=== PATIENT | female | born 1950 | race Caucasian/White ===

== ENCOUNTER → 2017-02-20 | Outpatient (CLI) | payer MEDICARE ==
--- NOTE | 2017-02-20 10:07 | BD ---
EXAMINATION TYPE: MG DEXA axial skeleton. DATE OF EXAM: 02/20/2017 COMPARISON: NONE CLINICAL HISTORY: Height: 62.5 IN Weight: 194 LBS FRAX RISK QUESTIONS: Alcohol (3 or more units per day): NO Family History (Parent hip fracture): NO Glucocorticoids (More than 3mos): NO (Ex: prednisone, prednisolone, methylprednisolone, dexamethasone, and hydrocortisone). History of Fracture in Adulthood: NO Secondary Osteoporosis: 1. Type 1 Diabetes: NO 2. Hyperthyroidism: NO 3. Menopause before 45: NO 4. Malnutrition: NO 5. Chronic liver disease: NO Rheumatoid Arthritis: NO Current Tobacco Use: NO RISK FACTORS HISTORY OF: Active: YES Postmenopausal woman: AGE 49 Lost more than 2 inches in height since high school: YES 3 " MEDICATIONS: Thyroid Medications: YES Which medication: Levothyroxine How Lon + YRS Osteoporosis Medications: NOT NOW Which medication: Boniva How Long: TOOK BONIVA FOR 3 MONTHS 10 YEARS AGO. Additional Medications: CALCIUM, VIT D, STATIN, HIGH BLOOD PRESSURE MEDS, LEVOTHYROXINE EXAM MEASUREMENTS: Bone mineral densitometry was performed using the Player X System. Bone mineral density as measured about the Lumbar spine is: ----- L1-L4(G/cm2): 1.121 T Score Values are as follows: ----- L2: -1.7 ----- L3: -0.3 ----- L4: 0.6 ----- L1-L4: -0.5 Bone mineral density has:Increased 4.4% since study of: 07/14/2014 Bone mineral density about the R hip (g/cm2): 1.011 Bone mineral density about the L hip (g/cm2): 0.961 T Score values are as follows: -----R Neck: -0.2 -----L Neck: -0.6 -----R Total: 0.4 -----L Total: 0.6 Bone mineral density has: Increased 4.1% since study of: 07/14/2014 IMPRESSION: Findings compatible with localized osteopenia L2 vertebral body. NOTE: T-SCORE=SD OF THE YOUNG ADULT MEAN.
--- NOTE | 2017-02-21 11:34 | MM ---
Reason for exam: screening (asymptomatic). Last mammogram was performed 1 year ago. History: Patient is postmenopausal. Family history of breast cancer in maternal aunt at age 60. Took estrogen for 5 years 2 months. Physical Findings: A clinical breast exam by your physician is recommended on an annual basis and results should be correlated with mammographic findings. MG 3D Screening Mammo W/Cad Bilateral CC and MLO view(s) were taken. Prior study comparison: February 18, 2016, bilateral MG 3d screening mammo w/cad. July 14, 2014, bilateral MG screening mammo w CAD. There are scattered fibroglandular densities. Benign calcifications. There is chronic nodularity in the right breast, stable. No significant changes when compared with prior studies. ASSESSMENT: Benign, BI-RAD 2 RECOMMENDATION: Routine screening mammogram of both breasts in 1 year.
== END | disposition home or self-care (01) ==
LOC: RADMAMWWP 08:40
PROVIDERS: ATTEND Family Medicine
DX: Z12.31 Encounter for screening mammogram for malignant neoplasm of breast (principal); N95.1 Menopausal and female climacteric states
CPT/HCPCS: 77080; 77063; G0202

== ENCOUNTER → 2018-03-26 | Outpatient (CLI) | payer MEDICARE ==
--- NOTE | 2018-03-28 09:53 | MM ---
Reason for exam: screening (asymptomatic). Last mammogram was performed 1 year and 1 month ago. History: Patient is postmenopausal. Family history of breast cancer in maternal aunt at age 60. Took estrogen for 5 years 2 months. Physical Findings: A clinical breast exam by your physician is recommended on an annual basis and results should be correlated with mammographic findings. MG 3D Screening Mammo W/Cad Bilateral CC and MLO view(s) were taken. XCCL view(s) were taken of the left breast. Prior study comparison: February 20, 2017, bilateral MG 3d screening mammo w/cad. February 18, 2016, bilateral MG 3d screening mammo w/cad. There are scattered fibroglandular densities. Finding: There are typically benign vascular, dystrophic, round, linear calcifications in both breasts. There is no discrete abnormality. ASSESSMENT: Benign, BI-RAD 2 RECOMMENDATION: Routine screening mammogram of both breasts in 1 year.
== END ==
LOC: RADMAMWWP 10:52
PROVIDERS: ATTEND Family Medicine
DX: Z12.31 Encounter for screening mammogram for malignant neoplasm of breast (principal)
CPT/HCPCS: 77063; 77067

== ENCOUNTER → 2019-07-04 | Outpatient (CLI) | payer MEDICARE ==
--- NOTE | 2019-07-05 14:54 | MM ---
Reason for exam: screening (asymptomatic). Last mammogram was performed 1 year and 3 months ago. History: Patient is postmenopausal. Family history of breast cancer in maternal aunt at age 60. Took estrogen for 5 years 2 months. Physical Findings: A clinical breast exam by your physician is recommended on an annual basis and results should be correlated with mammographic findings. MG 3D Screening Mammo W/Cad Bilateral CC and MLO view(s) were taken. Prior study comparison: March 26, 2018, bilateral MG 3d screening mammo w/cad. February 20, 2017, bilateral MG 3d screening mammo w/cad. There are scattered fibroglandular densities. Stable benign calcifications. There is no discrete abnormality. No significant changes when compared with prior studies. ASSESSMENT: Benign, BI-RAD 2 RECOMMENDATION: Routine screening mammogram of both breasts in 1 year.
== END | disposition home or self-care (01) ==
LOC: RADMAMWWP 10:43
PROVIDERS: ATTEND Family Medicine
DX: Z12.31 Encounter for screening mammogram for malignant neoplasm of breast (principal)
CPT/HCPCS: 77063; 77067

== ENCOUNTER → 2020-12-25 | Outpatient (CLI) | payer MEDICARE ==
--- NOTE | 2020-12-25 20:19 | BD ---
EXAMINATION TYPE: Axial Bone Density DATE OF EXAM: 12/25/2020 COMPARISON: 02.20.2017 CLINICAL HISTORY: 70 YR OLD FEMALE.....ICD-10 CODE: Z78.0 POST MENOPAUSAL Height: Weight: FRAX RISK QUESTIONS: NOTHING TO NOTE HERE RISK FACTORS HISTORY OF: HX OF BROKEN FOOT IN HER 40s Postmenopausal woman: YES, AT AGE 49 TOTAL HYST Take estrogen and/or progesterone medications: YES, FOR ABOUT 2-3 YRS IN THE PAST ONLY Lost more than 2 inches in height since high school: YES Hyperparathyroidism: NO Adrenal Insufficiency: NO MEDICATIONS: Thyroid Medications: YES, SYNTHROID FOR ABOUT 20 YRS Osteoporosis Medications: YES, BONIVA IN THE PAST, CANNOT TAKE THEM Additional Medications: BP MEDS, REFLUX MEDS, STATIN FOR CHOLESTEROL, VIT D AND CALCIUM Additional History: HYPERTENSION, REFLUX, CHOLESTEROL, ARTHRITIS EXAM MEASUREMENTS: Bone mineral densitometry was performed using the [employer] System. Bone mineral density as measured about the Lumbar spine is: ----- L1-L4(G/cm2): 1.055 T Score Values are as follows: ----- L1: -1.5 ----- L2: -2.1 ----- L3: -0.7 ----- L4: -1.5 ----- L1-L4: -1.0 Bone mineral density has: Decreased -5.0% since study of: 02.20.2017 Bone mineral density about the R hip (g/cm2): 1.054 Bone mineral density about the L hip (g/cm2): 1.078 T Score values are as follows: -----R Neck: -0.3 -----L Neck: -1.4 -----R Total: 0.4 -----L Total: 0.5 Bone mineral density has: Decreased -0.7% since study of: 02.20.2017 FRAX%s: THERE IS A 9.2% CHANCE FOR A MAJOR OSTEOPOROTIC FX AND A 1.3% FOR HIP.....PROBABILITY FOR FX IN 10 YRS TIME IMPRESSION: Osteopenia (T Score between -2.5 and -1). There is slightly increased risk of fracture and the patient may be considered for treatment. Re-Screen 2-5 years. NOTE: T-SCORE=SD OF THE YOUNG ADULT MEAN.
--- NOTE | 2020-12-30 13:17 | MM ---
Reason for exam: screening (asymptomatic). Last mammogram was performed 1 year and 6 months ago. History: Patient is postmenopausal. Family history of breast cancer in maternal aunt at age 60. Took estrogen for 5 years 2 months. Physical Findings: A clinical breast exam by your physician is recommended on an annual basis and results should be correlated with mammographic findings. MG 3D Screening Mammo W/Cad Bilateral CC and MLO view(s) were taken. Prior study comparison: July 04, 2019, bilateral MG 3d screening mammo w/cad. March 26, 2018, bilateral MG 3d screening mammo w/cad. There are scattered fibroglandular densities. ASSESSMENT: Negative, BI-RAD 1 RECOMMENDATION: Routine screening mammogram of both breasts in 1 year.
== END | disposition home or self-care (01) ==
LOC: RADMAMWWP 07:58
PROVIDERS: ATTEND Family Medicine
DX: Z12.31 Encounter for screening mammogram for malignant neoplasm of breast (principal); Z78.0 Asymptomatic menopausal state; Z80.3 Family history of malignant neoplasm of breast; M85.80 Other specified disorders of bone density and structure, unspecified site
CPT/HCPCS: 77063; 77067; 77080

== ENCOUNTER → 2021-06-18 | Outpatient (CLI) | payer MEDICARE ==
--- NOTE | 2021-06-18 09:49 | XR ---
EXAMINATION TYPE: XR lumbar spine 2 or 3V DATE OF EXAM: 06/18/2021 CLINICAL HISTORY: Other intervertebral disc degeneration. TECHNIQUE: Frontal and lateral images of the lumbar spine are obtained. COMPARISON: None FINDINGS: There are 5 lumbar type vertebral bodies identified. There is dextroconvex scoliosis cente red at L2-L3 level. Vertebral body heights are maintained. [id number] multilevel disc space amada rowing. Vacuum disc phenomenon L5-S1 level. Vertebral body heights are preserved. Facet arthropathy i n the mid to lower lumbar spine. IMPRESSION: As above.
== END | disposition home or self-care (01) ==
LOC: RADXRMAIN 09:23
PROVIDERS: ATTEND Family Medicine
DX: M51.36 Other intervertebral disc degeneration, lumbar region (principal); M47.816 Spondylosis without myelopathy or radiculopathy, lumbar region; M41.86 Other forms of scoliosis, lumbar region
CPT/HCPCS: 72100

== ENCOUNTER → 2022-03-23 | Outpatient (CLI) | payer MEDICARE ==
--- NOTE | 2022-03-23 10:11 | CA ---
Transthoracic Echo Report Name: Lynn Daniel Age: 71 Gender: F : 1950 Exam Date: 03/23/2022 09:05 Exam Location: [facility] Ht (in): 64 Wt (lb): 208 Ordering Physician: Raghav Haines MD Attending/Referring Phys: Zaki BALDERRAMA Motor Tester Oly Gastelum, MICAELA Procedure CPT: Indications: i10 Cardiac Hx: Technical Quality: Good Contrast 1: Total Dose (mL): Contrast 2: Total Dose (mL): MEASUREMENTS (Male / Female) Normal Values 2D ECHO LV Diastolic Diameter PLAX 3.8 cm 4.2 - 5.9 / 3.9 - 5.3 cm LV Systolic Diameter PLAX 1.5 cm IVS Diastolic Thickness 1.3 cm 0.6 - 1.0 / 0.6 - 0.9 cm LVPW Diastolic Thickness 1.3 cm 0.6 - 1.0 / 0.6 - 0.9 cm LV Relative Wall Thickness 0.7 RV Internal Dim ED PLAX 3.1 cm LA Volume 29.9 cm??? 18 - 58 / 22 - 52 cm??? M-MODE Aortic Root Diameter MM 3.4 cm LA Systolic Diameter MM 3.8 cm LA Ao Ratio MM 1.1 MV E Point Septal Separation 1.1 cm AV Cusp Separation MM 2.0 cm DOPPLER AV Peak Velocity 139.0 cm/s AV Peak Gradient 7.7 mmHg AI Peak Velocity 326.4 cm/s AI Peak Gradient 42.6 mmHg AI Pressure Half Time 826.4 ms MV Area PHT 3.8 cm??? Mitral E Point Velocity 102.6 cm/s Mitral A Point Velocity 108.0 cm/s Mitral E to A Ratio 1.0 MV Deceleration Time 197.6 ms MV E' Velocity 6.4 cm/s Mitral E to MV E' Ratio 16.2 TR Peak Velocity 218.1 cm/s TR Peak Gradient 19.0 mmHg Right Ventricular Systolic Press 24.0 mmHg FINDINGS Left Ventricle Left ventricular ejection fraction is estimated at 55-60 %. Left ventricular cavity size normal. Moderate concentric LVH Grade 1 diastolic dysfunction. Right Ventricle The right ventricle is normal in size and function. Right Atrium The right atrium is normal in size. Left Atrium The left atrium is normal in size. Mitral Valve Structurally normal mitral valve without significant stenosis or prolapse. There is trace mitral regurgitation. Aortic Valve Structurally normal aortic valve without significant sclerosis or stenosis. There is mild aortic regurgitation. Focal thickening of the aortic valve cusps. Tricuspid Valve Structurally normal tricuspid valve without significant stenosis. Pulmonary artery systolic pressure is normal. Pulmonic Valve Structurally normal pulmonic valve without significant stenosis. There is no pulmonic regurgitation. Pericardium Normal pericardium without effusion. Aorta Normal aortic root dimension. CONCLUSIONS Normal LV size and systolic function with moderate concentric LVH. Mild thickening of aortic valve leaflet. No significant abnormality in the Doppler exam. No pericardial effusion Previewed by: Dr. Jordyn Yarbrough MD (Electronically Signed) Final Date: 23 March 2022 10:10
--- NOTE | 2022-03-23 10:15 | CA ---
Stress Echo Report Lynn Daniel Age: 71 Gender: F : 1950 Exam Date: 03/23/2022 09:13 Exam Location: [facility] Ht (in): 64 Wt (lb): 208 Ordering Physician: Raghav Haines MD Referring Physician: Zaki BALDERRAMA Coremaking Supervisor: Oly Gastelum RDCS Technologist Procedure CPT: Indication: i10 ICD-9 Codes: Rhythm: Patient History: Abnormal EKG Cardiac Medications: Medications in past 24 hours: Contrast: Stress Results Protocol: [place] Total dose(mL): Exercise Duration (min:sec): 3.[address] Depression (mm): Angina Score: Geiger Score: METS: 4.6 Resting HR: 73 Resting BP: 147 / 94 Peak HR: 135 Peak BP: 182 / 85 Max Predicted HR: 148 91 % Max Predicted HR Target HR: 126 Double Product: [id number] Stress Summary: BP Response: Reason for Termination: Reached target heart rate or work-load Cardiac Symptoms: Dyspnea ECG Analysis Resting ECG: Stress ECG: Arrhythmia: Echo Analysis Resting Echo: Peak Echo Analysis: MEASUREMENTS (Male/Female) Normal Values CONCLUSIONS Baseline EKG revealed a normal sinus rhythm with incomplete right bundle branch block. Patient walked for only 3 minutes 10 seconds and achieved a maximum heart rate of 135 bpm which is available 85% of predicted maximal. She delivered fatigue and shortness of breath. There were no ST segment changes to indicate ischemia. There is no significant arrhythmia. This is a negative stress test by EKG criteria with limited exercise capacity. Baseline echo images reveal normal wall motion wall thickening of all segments At peak exercise there was good augmentation of left ventricle wall motion wall thickening of all segments suggesting that there is no evidence of any stress-induced ischemia on this study. Final impression: Limited x-rays capacity the negative stress has been EKG criteria Normal stress echocardiogram without evidence of ischemia Dr. Jordyn Yarbrough MD (Electronically Signed) Final Date: 23 March 2022 10:15
--- NOTE | 2022-04-01 09:37 | MM ---
Reason for Exam: Screening (asymptomatic). Last mammogram was performed 1 year(s) and 3 month(s) ago. Patient History: Menarche at age 12. First Full-Term at age 20. Left ovary removed at age 49. Right ovary removed at age 49. Hysterectomy at age 49. Postmenopausal. Patient has history of breast feeding. Estrogen for 5 years, 2 months, until age 53. Maternal aunt had breast cancer, age 60. Risk Values: Zaida 5 year model risk: 1.6%. NCI Lifetime model risk: 4.1%. Prior Study Comparison: 02/18/2016 Bilateral Screening Mammogram, [facility]. 02/20/2017 Bilateral Screening Mammogram, [facility]. 03/26/2018 Bilateral Screening Mammogram, [facility]. 07/04/2019 Bilateral Screening Mammogram, [facility]. 12/25/2020 Bilateral Screening Mammogram, [facility]. Tissue Density: There are scattered fibroglandular densities. Findings: Analyzed By CAD. There is no suspicious group of microcalcifications or new suspicious mass in either breast. Overall Assessment: Benign, BI-RAD 2 Management: Screening Mammogram of both breasts in 1 year. A clinical breast exam by your physician is recommended on an annual basis and results should be correlated with mammographic findings. Electronically signed and approved by: Kumar Hernandez M.D. Radiologis
== END | disposition home or self-care (01) ==
LOC: RADMAMWWP 07:57
PROVIDERS: ATTEND Family Medicine
DX: Z12.31 Encounter for screening mammogram for malignant neoplasm of breast (principal); I10 Essential (primary) hypertension; I45.0 Right fascicular block; Z78.0 Asymptomatic menopausal state; Z80.3 Family history of malignant neoplasm of breast
CPT/HCPCS: 77063; 77067; 93306; 93351

== ENCOUNTER → 2023-12-07 | Outpatient (CLI) | payer MEDICARE ==
--- NOTE | 2023-12-08 19:18 | MM ---
Reason for Exam: Screening (asymptomatic). Last mammogram was performed 1 year(s) and 8 month(s) ago. Patient History: Menarche at age 12. First Full-Term at age 20. Left ovary removed at age 49. Right ovary removed at age 49. Hysterectomy at age 49. Postmenopausal. Patient has history of breast feeding. Estrogen for 5 years, 2 months, until age 53. Maternal aunt had breast cancer, age 60. Risk Values: Zaida 5 year model risk: 1.6%. NCI Lifetime model risk: 3.7%. Prior Study Comparison: 07/04/2019 Bilateral Screening Mammogram, [facility]. 12/25/2020 Bilateral Screening Mammogram, [facility]. 03/23/2022 Bilateral MG 3D screening mammo w/cad, [facility]. Tissue Density: There are scattered areas of fibroglandular density. Findings: Analyzed By CAD. The pattern is symmetrical. No suspicious groups of microcalcifications, spiculated or lobular masses, architectural distortion or other secondary signs of malignancy are mammographically apparent. Overall Assessment: Benign, BI-RAD 2 Management: Screening Mammogram of both breasts in 1 year. A negative mammogram report should not preclude additional follow up of suspicious palpable abnormalities. Patient should continue monthly self breast exam. A clinical breast exam by your physician is recommended on an annual basis and results should be correlated with mammographic findings. Note on Zaida scores and lifetime risk: 1. A Zaida score greater than 3% is considered moderate risk. If this is the case, consider specialist referral to assess eligibility for a risk reducing agent. 2. If overall lifetime risk for the development of breast cancer is 20% or higher, the patient may qualify for future screening with alternating mammogram and breast MRI. Electronically signed and approved by: Abner Perera D.O. Radiologis
--- NOTE | 2023-12-14 22:48 | BD ---
EXAMINATION TYPE: Axial Bone Density DATE OF EXAM: 12/07/2023 CLINICAL HISTORY: 73 years old Female. ICD-10 CODE: Z78.0 ASYMPTOMATIC MENOPAUSAL STATE Height: 61.7in Weight: 202lb FRAX RISK QUESTIONS: History of Fracture in Adulthood: yes Secondary Osteoporosis: RISK FACTORS HISTORY OF: MEDICATIONS: Thyroid Medications: Which medication: Synthroid How Long: about 10 years EXAM MEASUREMENTS: Bone mineral densitometry was performed using the [employer] System. Bone mineral density as measured about the Lumbar spine is: ----- L1-L4(G/cm2): 1.192 T Score Values are as follows: ----- L1: -1.2 ----- L2: 0.5 ----- L3: -0.5 ----- L4: 1.2 ----- L1-L4: 0.1 Z Score Values are as follows: ----- L1: -0.3 ----- L2: 1.3 ----- L3: 0.3 ----- L4: 2.1 ----- L1-L4: 0.9 Bone mineral density has: Increased 13.0% since study of: 12-25-20 Bone mineral density about the R hip (g/cm2): 1.027 Bone mineral density about the L hip (g/cm2): 1.061 T Score values are as follows: -----R Neck: -0.3 -----L Neck: -0.9 -----R Total: 0.2 -----L Total: 0.4 Z Score values are as follows: -----R Neck: 1.0 -----L Neck: 0.4 -----R Total: 1.2 -----L Total: 1.5 Bone mineral density has: Decreased -1.9% since study of: 12-25-20 FRAX%s: The graph provided illustrates a 13.1% chance for a major osteoporotic fx and a 1.5% chance f or the hips probability for fx in 10 years time. IMPRESSION: Normal (Values between +1 and -1 indicate normal bone mass). Consider repeating this study in 5 year s or sooner if there is some new clinical indication. NOTE: T-SCORE=SD OF THE YOUNG ADULT MEAN.
== END | disposition home or self-care (01) ==
LOC: RADBDWWP 07:48
PROVIDERS: ATTEND Family Medicine
DX: Z12.31 Encounter for screening mammogram for malignant neoplasm of breast (principal); M85.88 Other specified disorders of bone density and structure, other site; Z78.0 Asymptomatic menopausal state; Z80.3 Family history of malignant neoplasm of breast
CPT/HCPCS: 77063; 77067; 77080

== ENCOUNTER → 2024-01-02 | Outpatient (CLI) | payer MEDICARE ==
--- NOTE | 2024-01-03 07:52 | CA ---
Transthoracic Echo Report Name: Lynn Daniel Age: 73 Gender: F : 1950 Exam Date: 01/02/2024 13:51 Exam Location: [facility] Ht (in): 64 Wt (lb): 200 Ordering Physician: Raghav Haines MD Attending/Referring Phys: [id number], Zaki Pearl Digger Elyse Clemente RDCS Procedure CPT: Indications: I35.1 nonrheumatic aortic insufficiency Cardiac Hx: Technical Quality: Fair Contrast 1: Total Dose (mL): Contrast 2: Total Dose (mL): MEASUREMENTS (Male / Female) Normal Values 2D ECHO LV Diastolic Diameter PLAX 2.9 cm 4.2 - 5.9 / 3.9 - 5.3 cm LV Systolic Diameter PLAX 2.5 cm IVS Diastolic Thickness 1.5 cm 0.6 - 1.0 / 0.6 - 0.9 cm LVPW Diastolic Thickness 1.6 cm 0.6 - 1.0 / 0.6 - 0.9 cm LV Relative Wall Thickness 1.1 LVOT Diameter 1.7 cm LA Volume 42.9 cm??? 18 - 58 / 22 - 52 cm??? LA Volume Index 20.8 cm???/m??? 16 - 28 cm???/m??? M-MODE Aortic Root Diameter MM 2.8 cm LA Systolic Diameter MM 4.6 cm LA Ao Ratio MM 1.7 AV Cusp Separation MM 1.6 cm DOPPLER AV Peak Velocity 159.0 cm/s AV Peak Gradient 10.1 mmHg AV Mean Velocity 101.7 cm/s AV Mean Gradient 4.8 mmHg AV Velocity Time Integral 29.8 cm AI Peak Velocity 346.8 cm/s AI Peak Gradient 48.1 mmHg AI Pressure Half Time 571.4 ms LVOT Peak Velocity 94.9 cm/s LVOT Peak Gradient 3.6 mmHg LVOT Velocity Time Integral 18.2 cm LVOT Stroke Volume 43.7 cm??? LVOT Stroke Volume Index 22.4 ml/m??? LVOT Cardiac Index 1441.9 cm???/min???m??? AV Area Cont Eq vti 1.5 cm??? AV Area Cont Eq pk 1.4 cm??? MV Area PHT 2.6 cm??? Mitral E Point Velocity 59.8 cm/s Mitral A Point Velocity 104.0 cm/s Mitral E to A Ratio 0.6 MV Deceleration Time 293.3 ms MV E' Velocity 5.2 cm/s Mitral E to MV E' Ratio 11.5 FINDINGS Left Ventricle Moderately increased left ventricular wall thickness. Left ventricular cavity size normal. Normal left ventricular systolic function with no obvious regional wall motion abnormalities. Left ventricular ejection fraction is estimated at 55-60 %. Grade 1 diastolic dysfunction. Right Ventricle Normal right ventricular size and function. Right ventricular systolic pressure within normal limits. Right Atrium Normal right atrial size. Left Atrium Normal left atrial size. Mitral Valve Structurally normal mitral valve. Mitral valve thickened. Mild mitral annular calcification. Mild mitral regurgitation. Aortic Valve Trileaflet aortic valve. No aortic stenosis. Aortic valve sclerosis. Mild aortic regurgitation. Tricuspid Valve Structurally normal tricuspid valve. Mild tricuspid regurgitation. Pulmonic Valve Structurally normal pulmonic valve. Trace pulmonic regurgitation. Pericardium No pericardial effusion. Aorta Normal size aortic root and proximal ascending aorta. CONCLUSIONS Normal LV systolic function Mild aortic insufficiency Previewed by: Dr. Tho Gee MD (Electronically Signed) Final Date: 03 January 2024 07:51
--- NOTE | 2024-01-03 11:16 | US ---
EXAMINATION TYPE: US carotid duplex BILAT DATE OF EXAM: 01/02/2024 COMPARISON: NONE CLINICAL INDICATION: Female, 73 years old with history of I35.1 NONRHEUATIC AORTIC INSUFFICIENCY; Diz ziness and Hx HTN TECHNIQUE: Carotid duplex ultrasound examination. Indirect Doppler criteria was utilized. FINDINGS: EXAM MEASUREMENTS: RIGHT: Peak Systolic Velocity (PSV) cm/sec ----- Right CCA: 53 ----- Right ICA: 86 ----- Right ECA: 110 ICA/CCA ratio: 1.6 RIGHT: End Diastole cm/sec ----- Right CCA: 14 ----- Right ICA: 28 ----- Right ECA: 11 LEFT: Peak Systolic Velocity (PSV) cm/sec ----- Left CCA: 75 ----- Left ICA: 104 ----- Left ECA: 67 ICA/CCA ratio: 1.4 LEFT: End Diastole cm/sec ----- Left CCA: 16 ----- Left ICA: 31 ----- Left ECA: 9 VERTEBRALS (direction of flow): Right Vertebral: Antegrade Left Vertebral: Antegrade Rhythm: Normal LEGAL CONTRACTS SPECIALIST NOTES: No intimal thickening, elevated velocities seen, some calcified plaque noted withi n bilateral CCA bulbs. A larger plaque may be at the right carotid bifurcation. IMPRESSION: 1. Mild atheromatous plaquing without significant flow-limiting stenosis based on velocities. Criteria for Assigning % of Stenosis / Diameter reduction (Estimation based on the indirect measurements of the internal carotid artery velocities (ICA PSV). 1. Normal (no stenosis)=ICA PSV < 125 cm/s: ratio < 2.0: ICA EDV<40 cm/s. 2. Less than 50% stenosis=ICA PSV < 125 cm/s: ratio < 2.0: ICA EDV<40 cm/s. 3. 50 to 69% stenosis=ICA PSV of 125 to 230 cm/s: ration 2.0 ? 4.0: ICA EDV 40-100 cm/s. 4. Greater than 70% stenosis to near occlusion= ICA PSV > 230 cm/s: ratio > 4.0: ICA EDV > 100 cm/s. 5. Near occlusion= ICA PSV velocities may be low or undetectable: variable ratio and ICA EDV. 6. Total occlusion=unable to detect flow.
== END | disposition home or self-care (01) ==
LOC: RADUSWWP 13:19
PROVIDERS: ATTEND Family Medicine
DX: R42 Dizziness and giddiness (principal); I70.90 Unspecified atherosclerosis; I08.0 Rheumatic disorders of both mitral and aortic valves
CPT/HCPCS: 93306; 93880